=== PATIENT | female | born 1960 | race Caucasian/White ===

== ENCOUNTER → 2017-07-15 08:09 | Outpatient (CLI) | payer BC, OTHER, SELFPAY ==
[2017-07-15 09:52] LABS: ALB/GLOB Ratio 0.9 RATIO (0.9-2.4); AST(SGOT) 17 U/L (15-37); Alanine Aminotransfer ALT/SGPT 20 U/L (13-56); Albumin, Serum 3.6 g/dL (3.2-5.0); Alkaline Phosphatase 99 U/L (45-117); Anion Gap 7 (5-15); BUN 14 mg/dL (7-18); BUN/Creat Ratio 19.6 RATIO (10-20); Calcium,Total 8.7 mg/dL (8.5-10.1); Chloride 103 mmol/L (98-107); Cholesterol 198 mg/dL (200); Creatinine, Serum 0.71 mg/dL (0.55-1.02); EST Glomerular Filtration Rate 89 mL/min (>60); Est Glom Filt Rate - Afr Amer 108 mL/min (>60); Glucose 87 mg/dL (74-106); High Density Lipoprotein 63 mg/dL; Potassium 3.9 mmol/L (3.5-5.1); Protein, Total 7.6 g/dL (6.4-8.2); Sodium Level 139 mmol/L (136-145); Thyroid Stim Hormone (TSH) 1.95 uIU/mL (0.358-3.74); Triglycerides 81 mg/dL; Very Low Density Lipoprotein 16 mg/dL (5-40)
[2017-07-16 13:48] LABS: Hep C Antibodies 0.1 s/co ratio (0.0-0.9)
== END ==
PROVIDERS: Family Provider Family Medicine; PCP Family Medicine; Visit Provider Family Medicine
DX: Z13.89 Encounter for screening for other disorder (principal); Z13.220 Encounter for screening for lipoid disorders
CPT/HCPCS: 36415; 80053; 80061; 84443; 86803

== ENCOUNTER → 2017-12-10 15:27 | Outpatient (CLI) | payer BC, OTHER, SELFPAY | PROVIDERS: Family Provider Family Medicine; PCP Family Medicine; Visit Provider Obstetrics & Gynecology | DX: Z12.31 Encounter for screening mammogram for malignant neoplasm of breast (principal); Z13.820 Encounter for screening for osteoporosis | CPT/HCPCS: 77063; 77067; 77080 ==

== ENCOUNTER → 2018-05-28 08:27 | Outpatient (CLI) | payer BC, OTHER, SELFPAY ==
[2018-05-28 09:58] LABS: AST(SGOT) 14 U/L (15-37); Alanine Aminotransfer ALT/SGPT 19 U/L (13-56); Albumin, Serum 3.8 g/dL (3.2-5.0); Alkaline Phosphatase 99 U/L (45-117); Anion Gap 8 (5-15); BUN 15 mg/dL (7-18); Calcium,Total 8.8 mg/dL (8.5-10.1); Chloride 105 mmol/L (98-107); Cholesterol 197 mg/dL (200); Creatinine, Serum 0.75 mg/dL (0.55-1.02); EST Glomerular Filtration Rate 84 mL/min (>60); Est Glom Filt Rate - Afr Amer 102 mL/min (>60); Globulin 3.8 g/dL (2.2-4.2); Glucose 91 mg/dL (74-106); High Density Lipoprotein 67 mg/dL; Protein, Total 7.6 g/dL (6.4-8.2); Sodium Level 142 mmol/L (136-145); Thyroid Stim Hormone (TSH) 2.32 uIU/mL (0.358-3.74); Triglycerides 84 mg/dL; Very Low Density Lipoprotein 17 mg/dL (5-40)
== END ==
PROVIDERS: Family Provider Family Medicine; PCP Family Medicine; Referring Provider Family Medicine; Visit Provider Family Medicine
DX: E78.5 Hyperlipidemia, unspecified (principal); E03.9 Hypothyroidism, unspecified
CPT/HCPCS: 36415; 80053; 80061; 84443

== ENCOUNTER → 2018-11-17 | Outpatient (CLI) | payer BC, OTHER, SELFPAY ==
--- NOTE | 2018-11-17 13:59 | US_ITS ---
STUDY: ULTRASOUND BREAST - LEFT REASON FOR EXAM: Female, 58 years old. Left breast tenderness. TECHNIQUE: Axial and longitudinal images of the LEFT breast were performed with a high resolution ultrasound transducer. COMPARISON: Comparison is made with prior mammogram done earlier today. FINDINGS: LEFT Breast: The lateral half of the left breast was examined by ultrasound. There is homogeneous fibroglandular tissue. No solid or cystic mass lesion is seen. US/Breast Limited Unilateral IMPRESSION: Unremarkable ultrasound of the lateral aspect of the left breast. ASSESSMENT CATEGORY: BIRADS Category 1: Negative. A letter regarding these results will be sent to the patient by the facility within 30 days. Electronically Signed: Adam Ordoñez, at 14:57 EDT , Service support ,
--- NOTE | 2018-11-17 13:59 | BI_ITS ---
MAMMOGRAPHY - BILATERAL DIAGNOSTIC REASON FOR EXAM: Female, 58 years old. Left breast tenderness. PERTINENT HISTORY: Mother with breast cancer. TECHNIQUE: Digital bilateral breast boni (3D mammographic acquisition) in the CC and MLO projections. 2-D mediolateral oblique (MLO) and craniocaudad (CC) views of both breasts were obtained. CAD: Full Field Digital Mammography with Computer Added Detection was performed. COMPARISON: Comparison is made with prior examination of December 10, 2017 and November 06, 2016. FINDINGS: Breast Composition: There are scattered areas of fibroglandular density. There are no dominant masses or suspicious calcifications. No other significant abnormalities are identified. There has been no significant change since the prior study. BI/DIAG MAMM W/CAD, BILAT IMPRESSION: Stable bilateral diagnostic mammogram. With the patient's history of left breast tenderness, a targeted ultrasound of the left breast is recommended. ASSESSMENT CATEGORY: BIRADS Category 0: Incomplete. Need additional imaging evaluation. A letter regarding these results will be sent to the patient by the facility within 30 days. Approximately 10% of breast cancers are not detected by mammography. A normal mammogram should not delay biopsy of a clinically suspicious abnormality. Electronically Signed: Adam Ordoñez, at 15:15 EDT , Service support ,
== END | disposition home or self-care (01) ==
LOC: OPBI 13:53
PROVIDERS: Family Provider Family Medicine; PCP Family Medicine; Referring Provider Obstetrics & Gynecology; Visit Provider Obstetrics & Gynecology
DX: N64.4 Mastodynia (principal)
CPT/HCPCS: 76642; 77066

== ENCOUNTER 2019-01-14 10:51 | Day surgery (SDC) | payer BC, OTHER, SELFPAY ==
[2019-01-06 11:13] VITALS: BP 159/83; PULSE 69; RESP 16; TEMP 36.2; O2SAT 100; BMI 27.3
--- NOTE | 2019-01-06 11:59 | SDCEKG_ITS ---
Test Reason : Blood Pressure : / mmHG Vent. Rate : 064 BPM Atrial Rate : 064 BPM P-R Int : 170 ms QRS Dur : 080 ms QT Int : 402 ms P-R-T Axes : 016 061 059 degrees QTc Int : 414 ms Normal sinus rhythm Normal ECG Confirmed by SUE BATISTA, MONROE ([id number]), acquisitions editor NESS MCCARTHY ([id number] on 01/14/2019 1:12:02 PM Referred By: Ada Bradford Confirmed By:WISAM ROGERS MD
[2019-01-06 12:58] LABS: Hematocrit 42.7 % (37-47); Hemoglobin 13.7 g/dL (12.0-15.0); Mean Corp Hgb Conc 32.1 g/dL (32-36); Mean Corpuscular Hgb 29.7 pg (27.0-32.0); Mean Corpuscular Volume 92.6 fL (81-99); Mean Platelet Vol. 11.1 fl (6.2-12.0); Platelet Count 226 K/mm3 (150-450); RBC Distribution Width CV 11.9 % (11.6-14.6); RBC Distribution Width SD 40.5 fl (35.1-43.9); Red Blood Count 4.61 M/mm3 (4.2-5.4); White Blood Count 6.1 K/mm3 (4.4-11.0)
[2019-01-06 13:43] LABS: Thyroid Stim Hormone (TSH) 2.91 uIU/mL (0.358-3.74)
--- NOTE | 2019-01-08 10:24 | PCM.HPOB.BLA ---
History and Physical Date of Admission: 01/14/19 On 01/06/2019, Halley Vieyra, a 58 year old female 6 0 2 0 6, presented for: -- Pre-Op Halley is here for Pre-Op visit for planned Anterior Repair. Denies Sx illness; she is afebrile here. Consent read and signed. Anterior Repair literature given. Coupon for Chlorhexidine Body Wash to be picked up @ [facility] Retail pharmacy this morning. PAT/Anesthesia consult this am @ 11. Advised no use of NSAIDS, Fish Oil or ASA until after surgery. [facility] PAT packet given. kbm As above. Here for preop appointment prior to planned anterior repair. She has a family history of malignant hyperthermia and has ANESTHESIA CONSULT after this appt due to this history. reviewed anticipated preop, operative and postop recovery including activity restrictions. Advised that anesthesia will discuss options with her at the time of her appt with them. Advised surgery may be done under general, or Spinal/epidural with IV sedation. All questions answered to her satisfaction and consents signed and on chart. Uterus with minimal prolapse and is planning ONLY anterior repair. EB ALLERGIES: Demerol, Feels very hot, Reglan, Systemic rxn and Anxiety, anesthesia, Malignant hyperthermia, Succinylcholine, Malignant hyperthermia, Darvon, Vomiting, Darvocet-N, Vomiting MEDICATIONS HISTORY: Current medications prescribed by our practice are: 1. Estrace 0.01% (0.1 mg/gram) vaginal cream, 1 gm PV twice weekly Patient is also takin. Nasonex 50 mcg/Actuation Honor, Non-Aerosol, prn 2. Synthroid 75mcg daily REVIEW OF SYSTEMS: GENERAL - L breast tenderness SKIN - Denies skin changes EYES - Denies visual changes EARS - Denies difficulty hearing NOSE - Denies nasal congestion or bleeding MOUTH - Denies sore throat or difficulty swallowing NECK - Denies pain or swelling RESPIRATORY - Denies shortness of breath or wheezing CARDIOVASCULAR - Denies palpitations or chest pain GASTROINTESTINAL - Denies nausea, vomiting, diarrhea, constipation GENITOURINARY - cystocele MUSCULOSKELETAL - Denies joint or muscle pain NEUROLOGICAL - Denies localized numbness or weakness PSYCHIATRIC - Denies depression or anxiety ENDOCRINE - Denies heat or cold intolerance, weight loss or gain HEMATO-IMMUNOLOGIC - Denies excessive bleeding with cuts PAST HISTORY: Breast/Ovarian/Colon Cancers - Mother had Breast Cancer approximately age 50-60 Infections - AIRBORNE ALLERGIES, Chicken pox, Mumps and Measles Illnesses - FIBROMYALGIA, Interstitial Cystitis and melanoma L shoulder Accidents - no injuries of consequence History of Abnormal PAPS - first noted more than 10 years ago-- YES which was treated with cryosurgery Hospitalizations - Childbirth and see surgery Melanoma; SURGICAL HISTORY: 1. 1991 AND 1992 D AND C SAB 2. Removal L shoulder melanoma Melanoma 3. facial cyst removed yrs ago MENSTRUAL HISTORY: LMP Known?- Approximate-Month Known, LMP - 12/14/10, Age Onset Menarche - 9 PAST PREGNANCIES: Total Pregnancies - 8; Full Term Pregnancies - 6; Premature - 0; Abortions, Induced - 0; Abortions, Spontaneous - 2; Ectopics - 0; Multiple Births - 0; Living Children - 6 FAMILY HISTORY: Father - Unknown Disease; Father - FH: Diabetes mellitus type 2; Mother - Unknown Disease; Mother - Cancer; PaternalGrandparent - Ischemic heart disease; PaternalGrandparent - FH: Diabetes mellitus type 2; SOCIAL HISTORY: Alcohol Use - RARELY Smoking - denies smoking Diet - balanced Diet Lifestyle - high stress lifestyle, active lifestyle and Exercise - minimal Seat Belt Use - always 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 Illicit Drug Use - denies use of street drugs Sexual Activity - Residence - owns a home Place of - [place], [place] Hours Worked - 30 wk Spouse-Sig Other Name - JASSI Spouse-Sig 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 Spouse-Sig Other Phone No - [phone] Children Name(s) - MackDuke Shawn, Erin, Rachel, Michaela Control - postmenopausal PHYSICAL EXAMINATION BP- 142/60 Sitting, Right arm, regular cuff Temp- 98.3 Taken Orally Weight- 180.60 lbs Height- 68.50 inch BMI:27.12 CONSTITUTIONAL - NAD, well nourished, and well developed HEENT - Normocephalic, PERRLA, EOMI NECK - no nuchal rigidity EXTREMITIES - no edema and no deformities NEUROLOGICAL - cranial nerves 2-12 intact PSYCHIATRIC - alert and mood appropriate DETAILED PELVIC EXAM External Genital Vagina - non-tender without lesions Urethra/Urethral Meatus - non-tender Bladder - non-tender Vagina - cystocele prolapses to introitus. mild rectocele noted. Cervix - without cervical motion tenderness and has normal size and features without evident lesions and minimal descent noted Uterus - normal size, mobile and no tenderness Adnexa - no tenderness, no masses and mobile Pap - deferred ASSESSMENT: 1. Cystocele, Midline, Incomplete Uterovaginal Prolapse and Rectocele PLAN BY DIAGNOSIS: 1. Cystocele, Midline, Incomplete Uterovaginal Prolapse and Rectocele Reviewed physical findings. Gr 1 uterine prolapse. Cystocele noted, smaller rectocele. Risk factors including childbirth and menopause discussed. Advised problem make improve with Kegels and wt loss and and may worsen with repetitive heavy lifting or persistent cough or with weight gain. Worsening symptoms. use of OTC personal lubricant and Kegels only ineffective. Declines pessary trial Reviewed options at prior visit, including TVH Anterior repair vs anterior repair alone. Mild uterine prolapse on exam Plans Anterior repair. DECLINES Hysterectomy. Reviewed R,B,A, anticipated preop, operative and postop recovery including activity restrictions. All questions answered to patient satisfaction and consents signed and on chart. to PAT next for family hx of malignant hyperthermia. ANESTHESIA CONSULT. The visit was approximately 15 minutes in length with most of the time spent in discussion and counseling.
[2019-01-14] VITALS (10 sets, daily range): BP systolic 111–134; BP diastolic 61–74; PULSE 56–80; RESP 16; TEMP 36.2–36.8; O2SAT 16–100; BMI 27.3
[2019-01-14] MEDS: Lactated Ringers 1,000 ML 100 ML IV ×2 (11:50→20:04)
[2019-01-14] MEDS: Lactated Ringers 1,000 ML 150 ML IV (12:15)
--- NOTE | 2019-01-14 12:30 | VAGMU_PTH ---
PATIENT: MINE POTTS [place] [facility] [id number] AGE/SX: 58/F ROOM: RE01/14/[address]: Dr. Ada Bradford MD : 1960 BED: DIS: 01/15/2019 SPEC #: [id number] RECD: 01/14/19 15:48 STATUS: ROLDAN CONRAD #: [id number] VASILIY: 01/14/19 12:[address]: Ada Bradford DEPT: SURGICAL PATHOLOGY RECD BY: Duke Quiroz ENTERED: 01/15/19 08:01 SP TYPE: VAG MUCOSA OTHR DR: Dr. Bo Wright III, MD Tissues: Vagina, NOS Procedures: Surgery Specimen Level III HEADER OPERATION: Anterior repair PRE-OP DIAGNOSIS: Cystocele, midline, incomplete uterovaginal prolapse TISSUE SUBMITTED: Vaginal mucosa MICROSCOPIC DIAGNOSIS Vaginal mucosa, anterior repair: Pieces of squamous mucosa with reactive changes and minimal chronic inflammation. SJ:rogers 01/16/19 MICROSCOPIC DESCRIPTION Slides are reviewed. GROSS DESCRIPTION Received in fixative is one container labeled with the patient's name and designated vaginal mucosa. The specimen consists of four variable sized pieces of martínez mucosal tissue that in aggregate measure 4 x 3.5 x 1 cm. No mucosal lesion is identified. Oil House Attendant sections are submitted in one cassette. / MARGARITA:rogers 01/15/19 TC:3 CPT: 81036
--- NOTE | 2019-01-14 13:48 | DCINST_ITS ---
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 You may take tylenol; and add either two Aleve or three Ibuprofen every 8 hrs if needed for moderate pain. Take OxyIR for more severe pain in addition to the above. Call your doctor if you observe: Fever of 101 or Higher, Using more than one pad per hour, Calf discomfort, Uncontrolled pain Allergies/Adverse Reactions: Allergies meperidine [From Demerol] Allergy (Verified 01/14/19 11:31) Other MAKES HER FEEL LIKE SHE'S ON FIRE metoclopramide [From Reglan] Allergy (Verified 01/14/19 11:31) Other JITTERS propoxyphene [From Darvon] Allergy (Verified 01/14/19 11:31) Nausea/Vom/Diarrhea succinylcholine Allergy (Verified 01/14/19 11:31) Other MALIGNANT HYPERTHERMIA Medications to take at Discharge Levothyroxine [Synthroid] 75 mcg PO DAILY 01/06/19 Docusate Sodium [Colace] 100 mg PO BID #30 cap 01/14/19 Naproxen [Naprosyn] 250 - 500 mg PO TID PRN PRN #30 tab 01/14/19 Oxycodone [Oxyir] 5 mg PO Q6H PRN PRN 3 Days #15 tablet 01/14/19 The following prescriptions were given: Docusate Sodium [Colace] 100 mg PO BID #30 cap Transmission Status: Pending to [facility] Naproxen [Naprosyn] 250 - 500 mg PO TID PRN PRN #30 tab PRN Reason: Mild-Mod Pain (1-08/22) Transmission Status: Pending to [facility] Oxycodone [Oxyir] 5 mg PO Q6H PRN PRN 3 Days #15 tablet PRN Reason: Mod-Severe Pain (4-01/22) Transmission Status: Sent to [facility] Primary Care Physician: Bo Wright III, MD [Primary Care Provider] - Test Results: Test results from this visit will be discussed in further detail at your follow- up appointment, if applicable. Please Follow Up With: Ada Bradford MD - [phone] When: in 2 wk for postoperative follow up appointment Proposed Discharge Date: 01/15/19
--- NOTE | 2019-01-14 14:44 | OP.PCM_ITS ---
Report of Operation Date of Procedure: 01/14/19 Pre-Operative Diagnosis: cystocele Post-Operative Diagnosis: same, and mild (Gr 1) uterine prolapse, small rectocele Surgery/Procedure Performed:: Anterior repair Description of Surgical Findings:: Findings: On exam under anesthesia, the cervix has mild prolapse and is parous appearing. Moderate cytocele is noted, prolapsing to introitus. application systems administrator: Franklin Trejo application systems administrator: Laila Stephens Type of Anesthesia:: General Anesthesiologist: Roderick Pendleton - ARLEY Specimen's removed: Vaginal mucosa Drains: Padron, 110 cc for case Estimated Blood Loss (mL): 100 cc Fluids Replaced: LR Description of Procedure: PATH: Uterus, bilateral fallopian tubes Strips of vaginal mucosa. Narrative account: After the risks, benefits and alternatives of the procedure were reviewed with the patient , informed consent was obtained. The patient was taken to the Operating room with an IV running . She was positioned in the dorsal supine position on the operating table and given general anesthesia. Once asleep she was positioned to the dorsal lithotomy position and prepped and draped in the usual sterile fashion. A Padron catheter was inserted to drain the bladder and left open to drain in the drape. The weighted speculum was placed into the vagina and a single tooth tenaculum was placed anterior to the cervix at the vaginal mucosa, lateral to the cystocele at each side . A transverse incision was created and the vaginal epithelium/mucosa was dissected from the underlying pubovesical cervical fascia. A linear incision was created from just anterior to the cervix to a point approximately 1 cm from the urethra. Cecy plication stitches of 1 Vicryl were placed, reducing the cystocele. The anterior vaginal mucosa was trimmed and the anterior vaginal incision was then repaired with interrupted stitches of 2-0 chromic. Excellent hemostasis was noted. Vaginal packing was then inserted: 1 Iodoform gauze Excellent hemostasis was noted. The Padron was attached to the Padron bag and clear yellow urine returned. The procedure was terminated and the patient was returned to dorsal supine position and awakened from general anesthesia. She was then transferred to the recovery room bed in stable condition after tolerating the procedure well. Sponge, lap, needle and instrument counts correct times two. Medications given preop and intraoperatively included: Cefotetan 2 gm IV was given environmental protection officer to the operating room. For a complete listing of medications given preop and intraoperatively, please see the anesthesia record. - Complications none - Admit VTE Documentation VTE Present on Admission: No VTE Mechan Device Prophylaxis: SCD's VTE Pharm Prophylaxis ordered?: Yes
[2019-01-14] MEDS: Ketorolac 30 MG/ML Syringe IV ×2 (16:40→22:50)
[2019-01-14] MEDS: 0.9% NaCl Peripheral Flush Adult/Peds IV (22:50)
[2019-01-14] MEDS: Docusate Sodium 100 MG Capsule PO (22:50)
[2019-01-15 05:25] VITALS: BP 99/49; PULSE 49; RESP 16; TEMP 36.5; O2SAT 98
[2019-01-15] MEDS: Lactated Ringers 1,000 ML 100 ML IV (05:30)
[2019-01-15] MEDS: Levothyroxine 75 MCG Tablet PO (05:31)
[2019-01-15] MEDS: 0.9% NaCl Peripheral Flush Adult/Peds IV ×2 (05:31→07:00)
[2019-01-15] MEDS: Ketorolac 30 MG/ML Syringe IV (05:31)
--- NOTE | 2019-01-15 08:21 | PCM.PROGNOTE ---
Subjective: POD#1 Anterior repair States feeling very well. Smoothest anesthesia experience she has ever had. No N/V. Not feeling tired. Up to walk and tolerated well. Padron in place. Regular breakfast. Asking about surgical findings and informed of same. - Physical Exam General: Alert, Oriented x3, Cooperative, No apparent distress HEENT: Atraumatic, EOMI Neck: Supple Skin: - - Vaginal packing removed. Very minimal old blood on packing. None on pad. Neurological: Cranial nerves II-XII grossly intact Psych/Mental Status: Normal Affect Vital Signs Temp Pulse Resp BP Pulse Ox 97.7 F L 49 L 16 99/49 L 98 01/15/19 05:25 01/15/19 05:25 01/15/19 05:25 01/15/19 05:25 01/15/19 05:25 Oxygen Delivery Method Room Air Weight: 81.647 kg Body Mass Index (BMI) 27.3 Intake and Output for Last 24 Hours 01/13/01/14/19 01/15/19 23:59 23:59 23:59 Intake Total 3216.67 / 3216.67 1743.33 / 1743.33 Output Total 1675 / 1675 550 / 550 Balance 1541.67 / 1541.67 1193.33 / 1193.33 Medical Necessity - Tobacco Use Smoking Status: Never smoker Tobacco Use: Non-smoker Assessment/Plan POD#1 Anterior repair Stable postop. reviewed surgical findings. Mod cystocele. Minimal cervical prolapse/uterine prolapse. Chose to leave uterus in place. Encouraged regular Kegels and to avoid heavy lifting. reviewed postop bleeding and recovery. Activity restrictions and dischg instructions written and on chart. May elect not to fill RX for OxyIR as not needed thus far. Tolerating diet, minimal pain. Ambulating well. NAD Vaginal packing out. Padron to be removed. Voiding trial. Home today. RTO in 2 wk for postop check, prn sooner if concerns.
[2019-01-15 08:44] LABS: Hematocrit 41.1 % (37-47); Hemoglobin 13.3 g/dL (12.0-15.0); Mean Corp Hgb Conc 32.4 g/dL (32-36); Mean Corpuscular Hgb 30.2 pg (27.0-32.0); Mean Corpuscular Volume 93.2 fL (81-99); Platelet Count 205 K/mm3 (150-450); RBC Distribution Width CV 11.5 % (11.6-14.6); RBC Distribution Width SD 39.7 fl (35.1-43.9); Red Blood Count 4.41 M/mm3 (4.2-5.4)
[2019-01-15 08:45] VITALS: BP 131/72; PULSE 70; RESP 18; TEMP 36.6; O2SAT 98
[2019-01-15] MEDS: Enoxaparin 40 MG/0.4 ML Syringe SC (10:04)
[2019-01-15] MEDS: Docusate Sodium 100 MG Capsule PO (10:04)
== END 2019-01-15 11:56 | disposition home or self-care (01) ==
LOC: SDC 10:54 → AC 10:54 → MS3 14:00
PROVIDERS: Anesthesiology; Family Provider Family Medicine; PCP Family Medicine; Referring Provider Obstetrics & Gynecology; Visit Provider Obstetrics & Gynecology
PROC: (CPT 57240; principal; 2019-01-14 12:15)
DX: N81.2 Incomplete uterovaginal prolapse (principal); E06.9 Thyroiditis, unspecified; Z79.899 Other long term (current) drug therapy; Z85.820 Personal history of malignant melanoma of skin
CPT/HCPCS: 57240; 36415; 84443; 85027; 86850; 86900; 86901; 88304; 93005; J7120; A4216; J2405

== ENCOUNTER → 2019-05-07 08:31 | Outpatient (CLI) | payer BC, OTHER, SELFPAY ==
[2019-01-14 14:45] VITALS: BMI 27.3
[2019-05-07 10:20] LABS: AST(SGOT) 15 U/L (15-37); Alanine Aminotransfer ALT/SGPT 23 U/L (13-56); Albumin, Serum 3.8 g/dL (3.2-5.0); Alkaline Phosphatase 93 U/L (45-117); Anion Gap 3 (5-15); BUN 18 mg/dL (7-18); BUN/Creat Ratio 20.5 RATIO (10-20); Calcium,Total 9.3 mg/dL (8.5-10.1); Chloride 105 mmol/L (98-107); Cholesterol 211 mg/dL (200); Creatinine, Serum 0.88 mg/dL (0.55-1.02); EST Glomerular Filtration Rate 70 mL/min (>60); Est Glom Filt Rate - Afr Amer 84 mL/min (>60); Globulin 3.8 g/dL (2.2-4.2); Glucose 83 mg/dL (74-106); High Density Lipoprotein 72 mg/dL; Potassium 4.2 mmol/L (3.5-5.1); Protein, Total 7.6 g/dL (6.4-8.2); Sodium Level 139 mmol/L (136-145); Triglycerides 78 mg/dL; Very Low Density Lipoprotein 16 mg/dL (5-40)
== END ==
PROVIDERS: PCP Family Medicine; Referring Provider Family Medicine; Visit Provider Family Medicine
DX: Z13.1 Encounter for screening for diabetes mellitus (principal); Z13.220 Encounter for screening for lipoid disorders
CPT/HCPCS: 36415; 80053; 80061

== ENCOUNTER 2019-06-12 12:09 | Day surgery (SDC) | payer BC, OTHER, SELFPAY ==
[2019-06-12 12:41] VITALS: BP 137/61; PULSE 75; RESP 16; TEMP 36.6; O2SAT 100; BMI 26.9
[2019-06-12] MEDS: Lactated Ringers 1,000 ML 100 ML IV (12:50)
--- NOTE | 2019-06-12 13:21 | HP.PCM_ITS ---
History and Physical Date of Admission: 06/12/19 Halley Vieyra 1960 ? ? REFERRING PHYSICIAN: Bo Wright III, MD ? CHIEF COMPLAINT: Consult (Consult Colonoscopy) ? HPI: The patient is a 59 year old female here for consideration of screening for colon cancer via colonoscopy. Denies blood in stools. Denies abdominal pain No family history of colon cancer. Denies changes in bowel habits. Last colonoscopy about 10 years ago. There is concern from patient having malignant hyperthermia - patient had elevated temperature after anesthesia, however since then she has had prolapsed bladder repair surgery at [facility] without any complications ? ? PAST MEDICAL HISTORY ? Allergic urticaria ? ? Malignant hyperthermia 2008 ? Myalgia and myositis, unspecified ? ? PAST SURGICAL HISTORY ? BLADDER SURGERY HX ? 01/2019 ? bladder prolapse ? COLONOSCOPY W/BX ? 05/20/09 ? Normal -repeat in 10 years- -2019 ? CYSTO.PANENDO ? ? ? Cystoscopy ? D&C, DIAG AND/OR THERAPEUTIC ? ? ? Dilation & curettage ? REM LESIO TRUNK,ARM,LEG 1.1 -2.0CM ? 07/05/07 ? Exc. left upper shoulder lesion ? REM LESION TRUNK,ARM,LEG 0.6 -1.0CM Left 08/28/14 ? Complete excision left popliteal space ? ? Current Outpatient Medications ? levothyroxine (SYNTHROID) 75 mcg tablet Take 1 tablet by mouth once daily. ? acetaminophen (TYLENOL EXTRA STRENGTH) 500 mg tablet Take 500 mg by mouth every 8 hours as needed. ? CALCIUM CARBONATE/VITAMIN D3 (VITAMIN D-3 ORAL) Take 1,000 Units by mouth once daily. ? mometasone (NASONEX) 50 mcg/Actuation NASAL nasal spray Use 2 Sprays in each nostril once daily. ? ? ALLERGIES: Darvocet A500 [Propoxyphene N-Acetaminophen]; Darvon [Propoxyphene Hcl]; Demerol [Meperidine (Pf)]; Succinylcholine; Reglan [Metoclopramide Hcl] ? PERSONAL HISTORY: Social History ? Tobacco Use ? Smoking status: Never Smoker ? Smokeless tobacco: Never Used Substance Use Topics ? Alcohol use: Yes ? ? Comment: occasionally ? Drug use: No ? FAMILY HISTORY ? Cancer Mother ? ? Diabetes Father ? ? Heart Paternal Grandfather ? ? ? Nursing Notes: Ji Lynch SYRUP FILTERER 05/21/2019 1:18 PM Signed REVIEW OF SYSTEMS: General: The patient notes fatigue, denies weight loss, denies weight gain, denies feeling hot, and denies feelings of cold. Eyes: The patient denies glaucoma, denies eye injury/surgery, wears glasses or contacts. Ear/Nose/Throat: The patient NOTES allergies, NOTES hayfever, denies ear infections, and denies bloody noses. Cardiovascular: The patient denies chest pain, denies heart disease, denies high blood pressure,denies cardiac stent, denies prior heart attack, denies irregular heart beat, denies high cholesterol, denies poor circulation, denies heart failure, other cardiac issues, denies claudication, denies cold f eet, denies peripheral arterial stent. Respiratory: The patient denies tuberculosis, NOTES pneumonia, denies frequent cough, denies pulmonary embolism, denies shortness of breath, and denies coughing up blood. Gastrointestinal: The patient denies difficulty swallowing, denies acid reflux, denies ulcers, denies vomiting, denies jaundice/hepatitis, denies gallbladder problems, denies black or tarry stools, denies hemorrhoids, denies bleeding from rectum, denies diverticulitis, denies constipation, denies diarrhea, denies loss of stool control, and denies hernias. Kidney/Bladder: The patient denies kidney stones, NOTES urine infections, and denies bloody urine. Skin: The patient NOTES a history of skin cancer, denies bleeding/changing moles, and NOTES a history of skin rash. Neurologic: The patient denies a history of epilepsy/convulsions, denies headaches, denies head/spinal injuries, and denies stroke/TIA. Psychiatric: The patient denies psychiatric medications, denies depression, and denies voices, denies substance abuse. Endocrine: The patient NOTES thyroid disorders, denies diabetes, and denies hormonal problems. Hematologic: The patient denies a history of bruising, denies bleeding, and denies anemia, denies blood clots. Infections: The patient NOTES a history of measles and mumps, denies rheumatic fever, and denies sexually transmitted diseases. Musculoskeletal: The patient NOTES back pain/injury, denies back problems, NOTES sciatica, denies knee/foot trouble, denies arthritis, or denies gout. ? PHYSICAL EXAMINATION: General: The patient is 59 year old female, well nourished, well hydrated in no acute distress. The patient is oriented to time, place, and person. VITALS: Blood pressure 138/78, pulse 99, temperature 36.3 ?C (97.4 ?F), temperature source Temporal Artery, height 172.7 cm (5' 8), weight 81.1 kg (178 lb 12.8 oz), last menstrual period 04/17/2011, SpO2 98 %. Body mass index is 27.19 kg/m?. Head ? Normocephalic. EOM intact with sclera clear and no icterus noted. Mouth with mucus membranes moist. Neck - supple with no jugular venous distention noted. Trachea is midline. No masses noted. Lungs ? clear to auscultation. Normal breath sounds No rales/rhonchi/wheezing noted. No labored breathing noted, such as retractions Heart ? normal S1 and S2 auscultated. No rubs/clicks/murmurs noted. Regular rate. Abdomen ? soft and benign. Normal bowel sounds. No abdominal bruits noted. Back - mid upper back with 3 cm subcutaneous mass, 2 cm mass on top of right shoulder - both rubbery and discrete Extremities ? no calf tenderness noted. No pitting edema noted. Skin ? normal skin integrity. Neurological ? gait normal, no focal deficits noted Psych ? calm and appropriate ?? IMPRESSION: screening for colon cancer via colonoscopy ? PLAN: I have discussed the above with the patient. I have offered colonoscopy possible biopsies for evaluation.. I have explained the procedure to the patient. I have counseled the patient as to the risks of the procedure, including but not limited to: infection, bleeding, perforation of the GI tract, injury to any intraabdominal organs such as the liver/spleen, inability to complete the procedure, complications of anesthesia, etc. ? the patient understands. The patient wishes to proceed with above. I have answered all questions to the patient?s satisfaction and the patient has no further questions. ?
[2019-06-12 13:51] VITALS: BP 109/48; BP 137/61; PULSE 72; RESP 16; TEMP 36.4; O2SAT 100
--- NOTE | 2019-06-12 13:53 | OP.COLON_ITS ---
Patient Name: Halley Vieyra Procedure Date: 06/12/2019 1:27 PM Date of : 1960 Age: 59 Procedure: Colonoscopy Indications: Screening for colorectal malignant neoplasm Providers: Joyce Joya MD Referring MD: Bo Wright Iii Medicines: See the Anesthesia note for documentation of the administered medications Patient Profile: Refer to note in patient chart for documentation of history and physical. Last Colonoscopy: 10 years ago. Complications: No immediate complications. Procedure: Pre-Anesthesia Assessment: - see anesthesia note After I obtained informed consent, the scope was passed under direct vision. Throughout the procedure, the patient's blood pressure, pulse, and oxygen saturations were monitored continuously. The colonoscope was introduced through the anus and advanced to the cecum, identified by the appendiceal orifice, ileocecal valve and palpation. The colonoscopy was performed without difficulty. The patient tolerated the procedure well. The quality of the bowel preparation was adequate. Scope In: 1:31:04 PM Scope Withdrawal Time 0 hours 9 minutes 50 seconds Scope Out: 1:47:53 PM Total Procedure Duration Time 0 hours 16 minutes 49 seconds Findings: The perianal and digital rectal examinations were normal. Pertinent negatives include normal sphincter tone. Internal hemorrhoids were found. Impression: - Internal hemorrhoids. - No specimens collected. Recommendation: - Repeat colonoscopy in 10 years for screening purposes. - Return to primary care physician PRN. - Continue present medications. Procedure Code(s): --- Professional --- G0121, Colorectal cancer screening; colonoscopy on individual not meeting criteria for high risk Diagnosis Code(s): --- Professional --- Z12.11, Encounter for screening for malignant neoplasm of colon K64.8, Other hemorrhoids CPT copyright 2017 [employer]. All rights reserved. The codes documented in this report are preliminary and upon inpatient coder review may be revised to meet current compliance requirements. MD Joyce Cummings MD 06/12/2019 1:52:58 PM This report has been signed electronically. Number of Addenda: 0 Note Initiated On: 06/12/2019 1:27 PM
--- NOTE | 2019-06-12 13:53 | OP.CCLET_ITS ---
06/12/2019 Bo Wright Iii [address] [place] [address] Re : Colonoscopy procedure for Halley Vieyra Dear Dr. Wright This procedure was performed on Wednesday, June 12, 2019. My impressions and recommendations are as follows: Impressions : - Internal hemorrhoids. - No specimens collected. Recommendations : - Repeat colonoscopy in 10 years for screening purposes. - Return to primary care physician PRN. - Continue present medications. My findings are described in the full procedure note, which is enclosed. If I can be of further assistance, please feel free to contact me at Doctor phone number(s): , Work: . Sincerely, MD Joyce Cummings MD 06/12/2019 1:52:58 PM This report has been signed electronically.
[2019-06-12 13:55] VITALS: BP 107/57; BP 137/61; PULSE 71; RESP 16; O2SAT 100
[2019-06-12 14:00] VITALS: BP 120/65; BP 137/61; PULSE 67; RESP 16; O2SAT 100
[2019-06-12 14:05] VITALS: BP 121/62; BP 137/61; PULSE 69; RESP 16; TEMP 37.2; O2SAT 100
[2019-06-12 14:25] VITALS: BP 137/61
== END 2019-06-12 14:25 | disposition home or self-care (01) ==
LOC: EN 12:10 → AC 12:15
PROVIDERS: PCP Family Medicine; Referring Provider Family Medicine; Visit Provider Surgery
PROC: 0DJD8ZZ Inspection of Lower Intestinal Tract, Via Natural or Artificial Opening Endoscopic (ICD-10-PCS; CPT 45378; principal; 2019-06-12 13:25)
DX: Z12.11 Encounter for screening for malignant neoplasm of colon (principal); K64.8 Other hemorrhoids
CPT/HCPCS: 45378; J7120

== ENCOUNTER → 2020-03-22 11:45 | Outpatient (CLI) | payer BC, OTHER, SELFPAY ==
[2020-03-22 15:35] LABS: Free T3 2.3 pg/mL (2.18-3.98); T4 Free Direct 1.07 ng/dL (0.76-1.46); Thyroid Stim Hormone (TSH) 2.55 uIU/mL (0.358-3.74)
[2020-03-25 06:14] LABS: Thyroglobulin Antibody < 1.0 IU/mL (0.0-0.9); Thyroid Peroxidase AB 162 IU/mL (0-34)
== END ==
PROVIDERS: PCP Family Medicine; Referring Provider Nurse Practitioner Family; Visit Provider Nurse Practitioner Family
DX: E03.9 Hypothyroidism, unspecified (principal)
CPT/HCPCS: 36415; 84439; 84443; 84481; 86376; 86800

== ENCOUNTER → 2020-06-07 11:51 | Outpatient (CLI) | payer BC, OTHER, SELFPAY ==
--- NOTE | 2020-06-07 11:53 | BI_ITS ---
MAMMOGRAPHY - BILATERAL SCREENING REASON FOR EXAM: Female, 60 years old. Routine annual screening examination. PERTINENT HISTORY: Mother with breast cancer. TECHNIQUE: Digital bilateral breast diya (3D mammographic acquisition) in the CC and MLO projections. 2-D mediolateral oblique (MLO) and craniocaudad (CC) views of both breasts were obtained. CAD: Full Field Digital Mammography with Computer Added Detection was performed. COMPARISON: Comparison is made with prior study dated 11/17/2018 and 12/10/2017. FINDINGS: Breast Composition: There are scattered areas of fibroglandular density. There are no dominant masses or suspicious calcifications. No other significant abnormalities are identified. There has been no significant change since the prior study. BI/SCRN MAMM (CAD)W/DIYA BILAT IMPRESSION: Stable bilateral screening mammogram. Yearly follow-up mammogram recommended. (A) ASSESSMENT CATEGORY: BIRADS Category 1: Negative. A letter regarding these results will be sent to the patient by the facility within 30 days. Approximately 10% of breast cancers are not detected by mammography. A normal mammogram should not delay biopsy of a clinically suspicious abnormality. [id number] Electronically Signed: Adam Ordoñez MD at 12:52 EST , Service support ,
== END ==
PROVIDERS: PCP Family Medicine; Referring Provider Student in an Organized Health Care Education/Training Program; Visit Provider Student in an Organized Health Care Education/Training Program
DX: Z12.31 Encounter for screening mammogram for malignant neoplasm of breast (principal)
CPT/HCPCS: 77063; 77067

== ENCOUNTER → 2020-06-28 | Outpatient (CLI) | payer BC, OTHER, SELFPAY ==
[2020-07-01 21:04] LABS: HPV APTIMA, High Risk Negative (Negative)
== END | disposition home or self-care (01) ==
LOC: LABSPEC 13:17
PROVIDERS: PCP Family Medicine; Visit Provider Student in an Organized Health Care Education/Training Program
DX: Z12.4 Encounter for screening for malignant neoplasm of cervix (principal)
CPT/HCPCS: 87624; 88175; G0145

== ENCOUNTER → 2020-07-27 10:53 | Outpatient (CLI) | payer BC, OTHER, SELFPAY ==
--- NOTE | 2020-07-27 10:55 | US_ITS ---
STUDY: ULTRASOUND BREAST - LEFT REASON FOR EXAM: Female, 60 years old. Pain in the left breast. TECHNIQUE: Axial and longitudinal images of the LEFT breast were performed with a high resolution ultrasound transducer. # OF IMAGES: 38 COMPARISON: Comparison is made with prior mammogram dated 06/07/2020. FINDINGS: LEFT Breast: The entire left breast was examined by ultrasound. No sonographic abnormality is seen. US/Breast Limited Unilateral IMPRESSION: No sonographic abnormality is seen. ASSESSMENT CATEGORY: BIRADS Category 1: Negative. A letter regarding these results will be sent to the patient by the facility within 30 days. Electronically Signed: Adam Ordoñez MD at 14:04 EDT , Service support ,
== END ==
PROVIDERS: PCP Family Medicine; Referring Provider Student in an Organized Health Care Education/Training Program; Visit Provider Student in an Organized Health Care Education/Training Program
DX: N64.4 Mastodynia (principal)
CPT/HCPCS: 76642

== ENCOUNTER 2021-05-25 08:07 | Outpatient (CLI) | payer BC, OTHER, SELFPAY ==
[2021-05-25 12:06] LABS: Hematocrit 43.1 % (37-47); Hemoglobin 13.9 g/dL (12.0-15.0); Mean Corp Hgb Conc 32.3 g/dL (32-36); Mean Corpuscular Hgb 29.9 pg (27.0-32.0); Mean Corpuscular Volume 92.7 fL (81-99); Mean Platelet Vol. 11.1 fl (6.2-12.0); Platelet Count 225 K/mm3 (150-450); RBC Distribution Width CV 11.9 % (11.6-14.6); RBC Distribution Width SD 40.9 fl (35.1-43.9); Red Blood Count 4.65 M/mm3 (4.2-5.4); White Blood Count 5.7 K/mm3 (4.4-11.0)
[2021-05-25 12:35] LABS: ALB/GLOB Ratio 0.9 RATIO (0.9-2.4); AST(SGOT) 15 U/L (15-37); Alanine Aminotransfer ALT/SGPT 26 U/L (13-56); Albumin, Serum 3.6 g/dL (3.2-5.0); Alkaline Phosphatase 97 U/L (45-117); Anion Gap 6 (5-15); BUN 21 mg/dL (7-18); BUN/Creat Ratio 25.2 RATIO (10-20); Calcium,Total 8.9 mg/dL (8.5-10.1); Chloride 103 mmol/L (98-107); Cholesterol 207 mg/dL (200); Creatinine, Serum 0.83 mg/dL (0.55-1.02); EST Glomerular Filtration Rate 74 mL/min (>60); Est Glom Filt Rate - Afr Amer 89 mL/min (>60); Glucose 94 mg/dL (74-106); High Density Lipoprotein 68 mg/dL; Protein, Total 7.6 g/dL (6.4-8.2); Sodium Level 136 mmol/L (136-145); Thyroid Stim Hormone (TSH) 2.61 uIU/mL (0.358-3.74); Triglycerides 72 mg/dL; Very Low Density Lipoprotein 14 mg/dL (5-40)
== END 2021-05-25 23:59 | disposition home or self-care (01) ==
LOC: BIMLAB 08:08
PROVIDERS: PCP Family Medicine; Referring Provider Family Medicine; Visit Provider Family Medicine
DX: Z00.00 Encounter for general adult medical examination without abnormal findings (principal); E03.9 Hypothyroidism, unspecified
CPT/HCPCS: 36415; 80053; 80061; 84443; 85027

== ENCOUNTER 2021-07-20 12:06 | Outpatient (CLI) | payer BC, OTHER, SELFPAY ==
--- NOTE | 2021-07-20 12:09 | BI_ITS ---
MAMMOGRAPHY - BILATERAL SCREENING REASON FOR EXAM: Female, 61 years old. Routine annual screening examination. PERTINENT HISTORY: Mother with breast cancer. History of prior left ultrasound-guided breast biopsies. TECHNIQUE: Digital bilateral breast diya (3D mammographic acquisition) in the CC and MLO projections. 2-D mediolateral oblique (MLO) and craniocaudad (CC) views of both breasts were obtained. CAD: Full Field Digital Mammography with Computer Added Detection was performed. COMPARISON: Comparison is made with prior examination of 06/07/2020 and 11/17/2018. FINDINGS: Breast Composition: There are scattered areas of fibroglandular density. There are no dominant masses or suspicious calcifications. No other significant abnormalities are identified. There has been no significant change since the prior study. BI/SCRN MAMM (CAD)W/DIYA BILAT IMPRESSION: Stable bilateral screening mammogram. Yearly follow-up mammogram recommended. (A) ASSESSMENT CATEGORY: BIRADS Category 1: Negative. A letter regarding these results will be sent to the patient by the facility within 30 days. Approximately 10% of breast cancers are not detected by mammography. A normal mammogram should not delay biopsy of a clinically suspicious abnormality. [id number] Electronically Signed: Adam Ordoñez MD at 13:19 EDT ,
== END 2021-07-20 23:59 | disposition home or self-care (01) ==
LOC: OPBI 12:07
PROVIDERS: PCP Family Medicine; Referring Provider Student in an Organized Health Care Education/Training Program; Visit Provider Student in an Organized Health Care Education/Training Program
DX: Z12.31 Encounter for screening mammogram for malignant neoplasm of breast (principal); Z80.3 Family history of malignant neoplasm of breast
CPT/HCPCS: 77063; 77067

== ENCOUNTER → 2022-01-19 | Outpatient (CLI) | payer BC, OTHER, SELFPAY ==
[2022-01-19 15:23] LABS: Hematocrit 42.5 % (37-47); Hemoglobin 13.8 g/dL (12.0-15.0); Mean Corp Hgb Conc 32.5 g/dL (32-36); Mean Corpuscular Hgb 29.9 pg (27.0-32.0); Mean Corpuscular Volume 92.2 fL (81-99); Platelet Count 237 K/mm3 (150-450); RBC Distribution Width CV 11.9 % (11.6-14.6); RBC Distribution Width SD 40.4 fl (35.1-43.9); Red Blood Count 4.61 M/mm3 (4.2-5.4); White Blood Count 7.6 K/mm3 (4.4-11.0)
[2022-01-19 15:44] LABS: ALB/GLOB Ratio 0.9 RATIO (0.9-2.4); AST(SGOT) 17 U/L (15-37); Alanine Aminotransfer ALT/SGPT 22 U/L (13-56); Albumin, Serum 3.6 g/dL (3.2-5.0); Alkaline Phosphatase 98 U/L (45-117); Anion Gap 7 (5-15); BUN 19 mg/dL (7-18); BUN/Creat Ratio 17.9 RATIO (10-20); Chloride 105 mmol/L (98-107); Cholesterol 203 mg/dL (200); Creatinine, Serum 1.06 mg/dL (0.55-1.02); EST Glomerular Filtration Rate 56 mL/min (>60); Est Glom Filt Rate - Afr Amer 67 mL/min (>60); Globulin 3.9 g/dL (2.2-4.2); Glucose 116 mg/dL (74-106); High Density Lipoprotein 63 mg/dL; Protein, Total 7.5 g/dL (6.4-8.2); Sodium Level 140 mmol/L (136-145); Thyroid Stim Hormone (TSH) 2.31 uIU/mL (0.358-3.74); Triglycerides 145 mg/dL; Very Low Density Lipoprotein 29 mg/dL (5-40)
== END | disposition home or self-care (01) ==
LOC: BIMLAB 14:18
PROVIDERS: PCP Family Medicine; Referring Provider Family Medicine; Visit Provider Family Medicine
DX: Z00.00 Encounter for general adult medical examination without abnormal findings (principal); E03.9 Hypothyroidism, unspecified
CPT/HCPCS: 36415; 80053; 80061; 84443; 85027

== ENCOUNTER → 2022-07-23 | Outpatient (CLI) | payer BC, OTHER, SELFPAY ==
--- NOTE | 2022-07-23 12:03 | BI_ITS ---
MAMMOGRAPHY - BILATERAL SCREENING 3-D TOMOSYNTHESIS REASON FOR EXAM: Female, 62 years old. Routine screening PERTINENT HISTORY: Mother with breast cancer.. TECHNIQUE: 2-D mammograms and 3-D Tomosynthesis of the breast (s) were performed. CAD was performed. COMPARISON: 06/07/2020 FINDINGS: The breast composition is composed of scattered fibroglandular density. Scattered benign calcifications are seen. No dense spiculated masses or suspicious microcalcifications are identified. No architectural distortion is identified. There is no skin thickening or retraction. There has been no significant change since the prior study. BI/SCRN MAMM (CAD)W/DIYA BILAT IMPRESSION: No mammographic signs of malignancy. Routine yearly mammograms recommended. ASSESSMENT CATEGORY: BIRADS Category 1: Negative. A letter regarding these results will be sent to the patient by the facility within 30 days. FOLLOW UP RECOMMENDATION: Yearly follow up mammogram recommended. (A) Approximately 10% of breast cancers are not detected by mammography. A normal mammogram should not delay biopsy of a clinically suspicious abnormality. Electronically Signed: Tristin Gallegos MD at 13:03 EDT ,
== END | disposition home or self-care (01) ==
PROVIDERS: PCP Family Medicine; Referring Provider Family Medicine; Visit Provider Student in an Organized Health Care Education/Training Program
DX: Z12.31 Encounter for screening mammogram for malignant neoplasm of breast (principal); Z80.3 Family history of malignant neoplasm of breast
CPT/HCPCS: 77063; 77067

== ENCOUNTER → 2022-08-07 | Outpatient (CLI) | payer BC, OTHER, SELFPAY ==
--- NOTE | 2022-08-07 14:01 | US_ITS ---
STUDY: ULTRASOUND BREAST - LEFT REASON FOR EXAM: Female, 62 years old. Superficial skin lesion with inflammation in the upper-outer quadrant of the breast. TECHNIQUE: Axial and longitudinal images of the LEFT breast were performed with a high resolution ultrasound transducer. # OF IMAGES: 42 COMPARISON: Comparison is made with prior mammogram dated July 23, 2022. FINDINGS: LEFT Breast: There is evidence of a 3 mm x 6 mm x 4 mm slightly hypoechoic nodular density in the subcutaneous tissue just deep to the skin surface. This most likely represents an infected sebaceous cyst. Incidental note is made of the left axillary lymph nodes. The largest lymph node measures 2.6 cm x 1.4 cm x 1.1 cm. US/Breast Limited Unilateral IMPRESSION: The abnormality corresponds with 3 mm x 6 mm x 4 mm slightly hypoechoic nodular density in the subcutaneous tissue just deep to the skin surface. This most likely represents an infected sebaceous cyst. Incidental note is made of enlarged left axillary lymph nodes. ASSESSMENT CATEGORY: BIRADS Category 2: Benign. A letter regarding these results will be sent to the patient by the facility within 30 days. Electronically Signed: Adam Ordoñez MD at 15:23 EDT ,
== END | disposition home or self-care (01) ==
LOC: OPUS 13:59
PROVIDERS: PCP Family Medicine; Referring Provider Student in an Organized Health Care Education/Training Program; Visit Provider Student in an Organized Health Care Education/Training Program
DX: N63.0 Unspecified lump in unspecified breast (principal)
CPT/HCPCS: 76642

== ENCOUNTER → 2023-03-05 | Outpatient (CLI) | payer BC, OTHER, SELFPAY ==
[2023-03-05 12:24] LABS: Absolute Lymphocyte Count 2.24 X10^3/uL (0.83-4.51); Absolute Neutrophil Count 3.4 X10^3/uL (2.0-7.7); Basophil# 0.05 X10^3/uL; Basophil% 0.8 % (0-1); Eosinophils% 1.6 % (0-5); Hematocrit 45.9 % (37-47); Hemoglobin 14.6 g/dL (12.0-15.0); Lymphocyte # 2.24 X10^3/ul (0.83-4.51); Lymphocyte % 35.4 % (19-41); Mean Corp Hgb Conc 31.8 g/dL (32-36); Mean Corpuscular Hgb 29.8 pg (27.0-32.0); Mean Corpuscular Volume 93.7 fL (81-99); Mean Platelet Vol. 11.4 fl (6.2-12.0); Monocyte# 0.53 X10^3/uL; Monocyte% 8.4 % (0-10); NRBC Flagged by Analyzer 0 % (0-5); Neutrophil # 3.39 X10^3/uL (2.7-7.7); Neutrophil % 53.6 % (47-70); Platelet Count 241 K/mm3 (150-450); RBC Distribution Width SD 41.5 fl (35.1-43.9); White Blood Count 6.3 K/mm3 (4.4-11.0)
[2023-03-05 12:50] LABS: ALB/GLOB Ratio 0.9 RATIO (0.9-2.4); AST(SGOT) 24 U/L (15-37); Alanine Aminotransfer ALT/SGPT 31 U/L (13-56); Albumin, Serum 3.8 g/dL (3.2-5.0); Alkaline Phosphatase 97 U/L (45-117); Anion Gap 8 (5-15); BUN 20 mg/dL (7-18); BUN/Creat Ratio 26.8 RATIO (10-20); Calcium,Total 8.7 mg/dL (8.5-10.1); Chloride 106 mmol/L (98-107); Cholesterol 217 mg/dL (200); Creatinine, Serum 0.75 mg/dL (0.55-1.02); EST Glomerular Filtration Rate 83 mL/min (>60); Est Glom Filt Rate - Afr Amer 100 mL/min (>60); Globulin 4.2 g/dL (2.2-4.2); Glucose 101 mg/dL (74-106); High Density Lipoprotein 73 mg/dL; Potassium 4.3 mmol/L (3.5-5.1); Sodium Level 139 mmol/L (136-145); Thyroid Stim Hormone (TSH) 2.37 uIU/mL (0.358-3.74); Triglycerides 66 mg/dL; Very Low Density Lipoprotein 13 mg/dL (5-40)
== END | disposition home or self-care (01) ==
LOC: BIMLAB 08:07
PROVIDERS: PCP Family Medicine; Visit Provider Family Medicine
DX: Z00.00 Encounter for general adult medical examination without abnormal findings (principal)
CPT/HCPCS: 36415; 80050; 80053; 80061; 84443; 85025

== ENCOUNTER → 2023-07-30 | Outpatient (CLI) | payer MEDICARE, BC, OTHER, SELFPAY ==
--- NOTE | 2023-07-30 11:55 | BI_ITS ---
MAMMOGRAPHY - BILATERAL SCREENING REASON FOR EXAM: Female, 63 years old. Routine annual screening examination. PERTINENT HISTORY: Mother with breast cancer. TECHNIQUE: Digital bilateral breast diya (3D mammographic acquisition) in the CC and MLO projections. 2-D mediolateral oblique (MLO) and craniocaudad (CC) views of both breasts were obtained. CAD: Full Field Digital Mammography with Computer Added Detection was performed. COMPARISON: Comparison is made with prior study July 23, 2022 and July 20, 2021. FINDINGS: Breast Composition: There are scattered areas of fibroglandular density. There are no dominant masses or suspicious calcifications. No other significant abnormalities are identified. There has been no significant change since the prior study. BI/SCRN MAMM (CAD)W/DIYA BILAT IMPRESSION: Stable bilateral screening mammogram. Yearly follow-up mammogram recommended. (A) ASSESSMENT CATEGORY: BIRADS Category 1: Negative. A letter regarding these results will be sent to the patient by the facility within 30 days. Approximately 10% of breast cancers are not detected by mammography. A normal mammogram should not delay biopsy of a clinically suspicious abnormality. [id number] Electronically Signed: Adam Ordoñez MD at 12:48 EDT ,
== END | disposition home or self-care (01) ==
LOC: OPBI 11:54
PROVIDERS: PCP Family Medicine; Referring Provider Family Medicine; Visit Provider Family Medicine
DX: Z12.31 Encounter for screening mammogram for malignant neoplasm of breast (principal)
CPT/HCPCS: 77063; 77067

== ENCOUNTER 2024-02-10 17:30 | Outpatient (RCR) | payer SELFPAY | END 2024-02-13 23:59 | LOC: NS 17:30 | PROVIDERS: PCP Family Medicine | DX: Z71.3 Dietary counseling and surveillance (principal) ==